=== PATIENT | female | born 1980 | race Caucasian/White ===

== ENCOUNTER 2016-12-24 10:47 | Emergency (ER) | payer OTHER ==
[2016-12-24 10:48] VITALS: BMI 31.6
[2016-12-24 10:52] VITALS: BP 126/79; PULSE 72; RESP 18; TEMP 98.6; O2SAT 98
--- NOTE | 2016-12-24 17:44 | C.PDOC ---
History Of Present Illness 36 year old year old female presents to the ED with complaints of left wrist pain for two weeks. 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 She denies use of any pain medications and does not have a PMD. Patient denies injuries, weakness or numbness. Chief Complaint (Nursing): Upper Extremity Problem/Injury History Per: Patient History/Exam Limitations: no limitations Onset/Duration Of Symptoms: Days (2 weeks ) Current Symptoms Are (Timing): Still Present Quality: "Pain" Exacerbating Factor(s): Nothing Recent travel outside of the [place]: No Past Medical History Reviewed: Historical Data, Nursing Documentation, Vital Signs Vital Signs: Last Vital Signs Temp 98.6 F 12/24/16 10:50 Pulse 72 12/24/16 10:50 Resp 18 12/24/16 10:50 BP 126/79 12/24/16 10:50 Pulse Ox 98 12/24/16 17:46 Surgical History: - [facility] Procedures EXTRACTION OF POC, LOW CERVICAL, OPEN APPROACH (10/05/15) MONITORING OF POC, CARDIAC RATE, ELEMENTARY SPANISH TEACHER APPROACH (10/05/15) Family History: States: Unknown Family Hx - Social History Hx Alcohol Use: No Hx Substance Use: No - Immunization History Hx Tetanus Toxoid Vaccination: No Hx Influenza Vaccination: No Hx Pneumococcal Vaccination: No Review Of Systems Musculoskeletal: Positive for: Hand Pain (left wrist pain ) Neurological: Negative for: Weakness, Numbness Physical Exam - Physical Exam Appears: Non-toxic, No Acute Distress Skin: Warm, Dry Head: Atraumatic, Normacephalic Eye(s): bilateral: Normal Inspection, PERRL, EOMI Neck: Normal ROM, No Midline Cervical Tenderness, No Paracervical Tenderness, Supple Cardiovascular: Rhythm Regular, No Murmur Respiratory: No Rales, No Rhonchi, No Wheezing, Other (clear to auscultation bilaterally ) Extremity: Normal ROM, No Tenderness, Capillary Refill (good capillary refill, less than two seconds ), No Deformity, No Swelling Pulses: Left Radial: Normal, Right Radial: Normal Neurological/Psych: Oriented x3 ED Course And Treatment O2 Sat by Pulse Oximetry: 98 (RA) Progress Note: Patient was given Motrin. Disposition - Disposition Referrals: [facility] [Outside] [facility] [Outside] Disposition: HOME/ ROUTINE Disposition Time: 11:40 Condition: GOOD Additional Instructions: Thank you for letting us take care of you today. Your provider was Dr. Silveira. You were treated for wrist pain. The emergency medical care you received today was directed at your acute symptoms. If you were prescribed any medication, please fill it and take as directed. It may take several days for your symptoms to resolve. Return to the Emergency Department if your symptoms worsen, do not improve, or if you have any other problems. Please contact your doctor or call one of the physicians/clinics you have been referred to that are listed on the Patient Visit Information form that is included in your discharge packet. Bring any paperwork you were given at discharge with you along with any medications you are taking to your follow up visit. Our treatment cannot replace ongoing medical care by a primary care provider (PCP) outside of the emergency department. Thank you for allowing the [facility] team to be part of your care today. Follow up with the clinic as schedled for re-evaluation and further management. Jennifer por dejarnos atenderlo leander. Baum proveedor fue el Dr. Silveira. Usted fue tratado por dolor en la mueca. La atencin mdica de emergencia que recibi hoy estaba dirigida a romana sntomas agudos. Si le prescribieron algn medicamento, llnelo y tome segn las indicaciones. Romana sntomas pueden tardar varios jackson en resolverse. Regrese al Departamento de Emergencia si romana s ntomas empeoran, no mejoran o si tiene algn otro problema. Comunquese con baum mdico o llame a jay de los mdicos / clnicas a los que sharp sido referido que figura en el formulario de Informacin de visita del paciente que se incluye en baum paquete de kimberly. Traiga todos los documentos que recibi al momento del kimberly junto con los medicamentos que est tomando en baum visita de seguimiento. Nuestro tratamiento no puede reemplazar la atencin mdica en curso por parte de un proveedor de atencin primaria (PCP) fuera del departamento de emergencias. Jennifer por permitir que el equipo de [facility] sea parte de baum cuidado hoy. Varun un seguimiento con la clnica programada para juanjose reevaluacin y administracin adicional. Prescriptions: Ibuprofen [Motrin] 600 mg PO Q6 PRN #20 tab PRN Reason: Pain, Moderate (4-7) Instructions: Wrist Sprain (ED) Forms: Gen Discharge Inst [place]ian Print Language: GREEK - Clinical Impression Clinical Impression: Wrist sprain - Scribe Statement The provider has reviewed the documentation as recorded by the Scribe Aisha Farrell All medical record entries made by the Scribe were at my direction and personally dictated by me. I have reviewed the chart and agree that the record accurately reflects my personal performance of the history, physical exam, medical decision making, and the department course for this patient. I have also personally directed, reviewed, and agree with the discharge instructions and disposition.
== END 2016-12-24 12:06 | disposition home or self-care (01) ==
LOC: C.ER 10:47
DX: S63.502A Unspecified sprain of left wrist, initial encounter (principal); X58.XXXA Exposure to other specified factors, initial encounter

== ENCOUNTER 2017-10-05 14:17 | Emergency (ER) | payer OTHER, SELFPAY ==
[2017-10-05 14:17] VITALS: BMI 31.6
[2017-10-05 14:22] VITALS: BP 130/78; PULSE 81; RESP 16; TEMP 98.3; O2SAT 100
--- NOTE | 2017-10-05 14:49 | C.PDOC ---
History Of Present Illness 37 y/o female presents to the ER complaining of pain in left forearm/ hand that has been ongoing for 5 months. Her occupation requires heavy lifting at times. The patient admits the pain worsens with movement and exertion. She denies any trauma or injury. The patient denies any numbness or tingling. Time Seen by Provider: 10/05/17 14:23 Chief Complaint (Nursing): Finger,Hand,&Wrist History Per: Patient History/Exam Limitations: no limitations Onset/Duration Of Symptoms: Days Current Symptoms Are (Timing): Still Present Quality: "Pain" Exacerbating Factor(s): Strenuous Use Of Affected Area, Movement Recent travel outside of the [place]: No Past Medical History Reviewed: Historical Data, Nursing Documentation, Vital Signs Vital Signs: Last Vital Signs Temp 98.3 F 10/05/17 14:20 Pulse 81 10/05/17 14:20 Resp 16 10/05/17 14:20 BP 130/78 10/05/17 14:20 Pulse Ox 100 10/05/17 14:49 - Medical History PMH: Denies: Chronic Kidney Disease Other PMH: Gestational Diabetes Surgical History: - [facility] Procedures EXTRACTION OF POC, LOW CERVICAL, OPEN APPROACH (10/05/15) MONITORING OF POC, CARDIAC RATE, ADULT PAROLE OFFICER APPROACH (10/05/15) Family History: States: Unknown Family Hx - Social History Hx Alcohol Use: No Hx Substance Use: No - Immunization History Hx Tetanus Toxoid Vaccination: No Hx Influenza Vaccination: No Hx Pneumococcal Vaccination: No Review Of Systems Except As Marked, All Systems Reviewed And Found Negative. Constitutional: Negative for: Fever Musculoskeletal: Positive for: Arm Pain Skin: Negative for: Jaundice, Bruising (left forearm/ hand ) Physical Exam - Physical Exam Appears: Well, Non-toxic, No Acute Distress Skin: Normal Color, Warm, No Rash Head: Atraumatic, Normacephalic Eye(s): bilateral: Normal Inspection, PERRL, EOMI Ear(s): Bilateral: Normal Oral Mucosa: Moist Neck: Normal ROM Chest: Symmetrical Cardiovascular: Rhythm Regular, No Murmur Respiratory: Normal Breath Sounds, No Rales, No Rhonchi, No Wheezing, Other ( NARD) Gastrointestinal/Abdominal: Bowel Sounds, Soft, No Tenderness Extremity: Tenderness (tenderness left snuff box), No Deformity, Swelling, Other (reproducible pain with movement) Extremity: Left: Limited ROM To Joint (snuff box), Bilateral: Atraumatic Pulses: Left Radial: Normal, Right Radial: Normal Neurological/Psych: Oriented x3 Gait: Steady ED Course And Treatment O2 Sat by Pulse Oximetry: 100 (RA) Pulse Ox Interpretation: Normal Progress Note: Impression: 37 y/o with pain to the left snuff box. Plan: -- Motrin 600mg PO. --Tylenol 650 mg PO Disposition Counseled Patient/Family Regarding: Diagnosis, Need For Followup, Rx Given - Disposition Referrals: [facility] [Outside] [facility] [Outside] Disposition: HOME/ ROUTINE Disposition Time: 14:48 Condition: IMPROVED Prescriptions: Acetaminophen [Tylenol Extra Strength] 2 tab PO Q6 #30 tablet Ibuprofen [Motrin] 600 mg PO Q6 #30 tab Instructions: Sprained Thumb (DC) Forms: [employer] Connect (Citizen Of [place]), Work Excuse Print Language: GUYANESE - Clinical Impression Clinical Impression: Thumb sprain - PA / INSPECTOR TIMERS / Resident Statement MD/DO has reviewed & agrees with the documentation as recorded. - Scribe Statement The provider has reviewed the documentation as recorded by the Scribe (Rachel Baires) Provider Attestation: All medical record entries made by the Scribe were at my direction and personally dictated by me. I have reviewed the chart and agree that the record accurately reflects my personal performance of the history, physical exam, medical decision making, and the department course for this patient. I have also personally directed, reviewed, and agree with the discharge instructions and disposition.
== END 2017-10-05 15:01 | disposition home or self-care (01) ==
LOC: C.ER 14:17
DX: S63.602A Unspecified sprain of left thumb, initial encounter (principal); X50.0XXA Overexertion from strenuous movement or load, initial encounter; Y92.9 Unspecified place or not applicable